=== PATIENT | female | born 1990 | race Caucasian/White ===

== ENCOUNTER 2021-12-25 10:45 | Emergency (ER) | payer MEDICAID, OTHER ==
[~2021-12-25] VITALS: Ht 167.6 cm; Wt 96.2 kg
[~2021-12-25 10:45] MED LIST: FERR325E14 PO; METH250T32 PO; PREN-385 PO
--- NOTE | 2021-12-25 10:45 | NUR ---
BIBA BLS TO ER BED 8
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
[2021-12-25 11:05] VITALS: BP 129/90
--- NOTE | 2021-12-25 11:22 | NUR ---
Dr. Sawyer evaluating patient at bedside.
[2021-12-25] MEDS ORDERED: KETOROLAC 30 MG/ML VIAL IM ONE (13:40)
[2021-12-25] MEDS ORDERED: ACET-10509 PO (14:00)
--- NOTE | 2021-12-25 14:00 | NUR ---
Patient ambulated to restroom with steady gait.
[2021-12-25 14:21] VITALS: BP 126/91
--- NOTE | 2021-12-25 14:21 | NUR ---
Patient discharged with v/s stable. Written and verbal after care instructions given. Patient alert, oriented and verbalized understanding of instructions. Ambulatory with steady gait. All questions addressed prior to discharge. ID band removed. Patient advised to follow up with PMD. Rx of Tylenol given. Opportunity to ask questions provided and answered.
--- NOTE | 2021-12-25 14:22 | NUR ---
Chart checked and completed. The patient's care was reviewed and supervised by Tori Lilly RN.
== END 2021-12-25 14:21 | disposition home or self-care (01) ==
LOC: MED 10:45
DX: R10.12 Left upper quadrant pain (principal); R07.89 Other chest pain; I10 Essential (primary) hypertension; E03.9 Hypothyroidism, unspecified; Z79.899 Other long term (current) drug therapy
CPT/HCPCS: 71046; 96372; 99284; J1885